=== PATIENT | male | born 1955 | race Caucasian/White ===

== ENCOUNTER 2020-05-26 09:46 | Emergency (ER) | payer SELFPAY ==
[2020-05-26] MEDS ORDERED: metroNIDAZOLE/Normal Saline 500 MG in Premix Bag 1 BAG IV ONE (09:58)
[2020-05-26] MEDS ORDERED: Ondansetron 4 MG/2 ML SDV IVPUSH ONE (09:58)
[2020-05-26] MEDS ORDERED: Pantoprazole 40 MG Vial IVPUSH ONE (09:58)
[2020-05-26] MEDS ORDERED: Lactated Ringers 1,000 ML IV ONE (09:58)
[2020-05-26] MEDS ORDERED: Famotidine 20 MG/2 ML SDV IVPUSH ONE (09:58)
[2020-05-26] MEDS ORDERED: cefTRIAXone 1 GM in Sodium Chloride 0.9% 100 ML IV ONE (09:58)
[2020-05-26] MEDS ORDERED: Sodium Chloride 0.9% 10 ML Syringe FLUSH PRN (09:58)
--- NOTE | 2020-05-26 09:58 | EDM.PDOC ---
ED HPI GENERAL MEDICAL PROBLEM - General Chief Complaint: Abdominal Pain Stated Complaint: Abdominal Pain Time Seen by Provider: 05/26/20 09:46 Source of Information: Reports: Patient. Denies: Old Records (No [facility] records available) History Limitations: Reports: No Limitations - History of Present Illness INITIAL COMMENTS - FREE TEXT/NARRATIVE: the patient drove himself to the emergency room via private automobile for evaluation of right lower quadrant abdominal pain pain and cramping starting at about 6:30 AM this morning. He had chills at that time, however no fever when he measured his temperature. The patient did take Pepto-Bismol with onset of the above symptoms but no recent antipyretic medication, etc. He has not had abdominal complaints in the past. Symptoms were associated with moderate nausea and 5 episodes of dry heaving with the patient not eating breakfast this morning. No recent history of other abdominal pain, heartburn, diarrhea, hematemesis, melena, gross hematochezia, or any food intolerance, including fatty foods, etc. with a good normal bowel movement earlier this morning. He denies any gross hematuria, colic, or other UTI symptoms. The patient denies any chest pain/pressure, heart flutter, dizziness, orthostasis, orthopnea, diaphoresis, paresthesias, recent decreased exercise tolerance, or any other anginal-type symptoms. The patient also denies any recent cough, wheezing, dyspnea, etc.. Onset: Today, Gradual Onset Date: 05/26/20 Onset Time: 06:30 Duration: Constant, Getting Worse Location: Reports: Abdomen. Denies: Head, Face, Neck, Chest, Back, Pelvis, Upper Extremity, Left, Upper Extremity, Right, Lower Extremity, Left, Lower Extremity, Right, Radiates to Quality: Reports: Stabbing Severity: Severe Improves with: Reports: None Worsens with: Reports: None Context: Reports: Other (As above). Denies: Sick Contact, Trauma Associated Symptoms: Reports: Fever/Chills, Loss of Appetite, Nausea/Vomiting. Denies: Confusion, Chest Pain, Cough, Diaphoresis, Headaches, Malaise, Rash, Shortness of Breath, Syncope, Weakness Treatments TAPE TRANSFERRER: Reports: Other Medication(s) (As above) Right Lower Abdomen Pain Score (Numeric/FACES): 10 - Related Data Allergies Allergy/AdvReac Type Severity Reaction Status Date / Time No Known Allergies Allergy Verified 05/26/20 10:10 Home Meds: Home Meds Aspirin 81 mg PO DAILY 05/26/20 [History] Losartan [Cozaar] 100 mg PO DAILY@1200 05/26/20 [History] Non-Formulary Medication [NF Drug] 1 tab PO BEDTIME 05/26/20 [History] Tamsulosin HCl [Flomax] 0.4 mg PO DAILY #7 cap.er.24h 05/26/20 [Rx] atorvaSTATin [Lipitor] 40 mg PO BEDTIME 05/26/20 [History] Past Medical History HEENT History: Reports: Allergic Rhinitis, Impaired Vision, Other (See Below). Denies: Cataract, Glaucoma, Hard of Hearing, Macular Degeneration, Otitis Media, Retinal Detachment Other HEENT History: Seasonal allergies. Patient wears glasses. Cardiovascular History: Reports: Heart Murmur, High Cholesterol, Hypertension, Other (See Below). Denies: Afib, Aneurysm, Arrhythmia, Blood Clots/VTE/DVT, CAD, Cardiomyopathy, Heart Failure, KS, PVD, Syncope Other Cardiovascular History: Benign functional heart murmur as a child, which has since resolved. Respiratory History: Reports: None. Denies: Asthma, Bronchitis, Recurrent, COPD, Intubation, Previous, PE, Pneumonia, Recurrent, Pneumothorax, Sleep Apnea, TB Gastrointestinal History: Reports: Colon Polyp, GERD. Denies: Celiac Disease, Cholelithiasis, Diverticulosis, Gastritis, GI Bleed, Hepatitis, Hiatal Hernia, Inflammatory Bowel Disease, Irritable Bowel Syndrome, Jaundice, Pancreatitis, PUD Genitourinary History: Reports: BPH, STD, Other (See Below). Denies: Acute Renal Failure, Chronic Renal Insuffiency, Diabetic Nephropathy, Renal Calculus, Retention, Urinary, Urinary Incontinence, UTI, Recurrent Other Genitourinary History: Gonorrhea x2 as a teenager while in the [place]- previously treated. Musculoskeletal History: Reports: Arthritis, Back Pain, Chronic, Fracture, Neck Pain, Chronic, Osteoarthritis, Other (See Below). Denies: Amputation, Gout, RA, SLE Other Musculoskeletal History: Phalangeal fractures of digits #3 of the hands bilaterally. Right wrist fracture at age 10. Left wrist fracture age 12. Right mid tibial and fibular fractures in 2010 with current surgery as below. Neurological History: Reports: None. Denies: Cerebral Aneurysms, Concussion, CVA, Headaches, Chronic, Head Trauma, Migraines, MS, Parkinson's, Seizure, TIA Psychiatric History: Reports: None. Denies: Abuse, Victim of, ADD, ADHD, Addiction, Anxiety, Depression, Psych Hospitalization(s), PTSD, Suicide Attempt, Suicidal Ideation Endocrine/Metabolic History: Reports: Diabetes, Type II, Obesity/BMI 30+. Denies: Diabetes, Type I, Diabetes Mellitus, Type 3c, Hypothyroidism, IDDM Hematologic History: Reports: None. Denies: Anemia, Blood Transfusion(s), Iron Deficiency Immunologic History: Reports: None. Denies: AIDS, HIV, SLE Oncologic (Cancer) History: Reports: None. Denies: Basal Cell Carcinoma, Colon, Hodgkin's Lymphoma, Leukemia, Lymphoma, Malignant Melanoma, Non-Hodgkin's Lymphoma, Squamous Cell Carcinoma Dermatologic History: Reports: None. Denies: Eczema, Psoriasis - Infectious Disease History Infectious Disease History: Reports: Chicken Pox, Rheumatic Fever, Shingles (Left-sided facial without zoster ophthalmicus in 2010), Other (See Below). Denies: C-Difficile, Measles, Meningitis, Mononucleosis, MRSA, Mumps, Novel Coronavirus, Rubella, TB, VRE - Past Surgical History Head Surgeries/Procedures: Reports: None HEENT Surgical History: Reports: Oral Surgery, Other (See Below). Denies: Adenoidectomy, Cataract Surgery, Detached Retina, Eye Surgery, Laser Surgery, LASIK, Myringotomy w Tube(s), Naso-Sinus Surgery, Tonsillectomy Other HEENT Surgeries/Procedures: Multiple teeth extractions. Cardiovascular Surgical History: Reports: None. Denies: Varicose Respiratory Surgical History: Reports: None. Denies: Thoracentesis GI Surgical History: Reports: Colonoscopy, Hernia, Abdominal, Polypectomy, Other (See Below). Denies: Appendectomy, Cholecystectomy, EGD, Hernia, Inguinal, Hernia Repair/Other Other GI Surgeries/Procedures: Umbilical hernia repair in about 2016. Colonoscopy in about 2014 with polypectomy of a benign lesion. Male Surgical History: Reports: Circumcision, Other (See Below). Denies: Prostate Biopsy, TURP-Transurethral Resection of Prostate Other Male Surgeries/Procedures: Circumcision at 2016. Vasectomy at about age 30. Neurological Surgical History: Denies: C-Spine, Discectomy, Laminectomy, Lumbar Spine, Sacral Spine, Spinal Fusion, Thoracic Spine, Vertebroplasty Musculoskeletal Surgical History: Reports: Carpal Tunnel, ORIF, Other (See Below). Denies: Arthroscopic Procedure, Ganglion Cyst, Joint Replacement, Shoulder Surgery Other Musculoskeletal Surgeries/Procedures:: Right carpal tunnel release in about 1999. ORIF of midshaft right tibial fibular fracture in 2010. Oncologic Surgical History: Reports: None Dermatological Surgical History: Reports: None Social & Family History - Tobacco Use Tobacco Use Status *Q: Never Tobacco User Tobacco Use Within Last Twelve Months: No Used Tobacco, but Quit: No Smoking Cessation Information Provided To Patient: No Second Hand Smoke Exposure: No Second Hand Smoke Education Provided: No - Caffeine Use Caffeine Use: Reports: Energy Drinks (1 can/week), Soda (3 sodas per week), Tea (3-4 quarts per week). Denies: Coffee - Alcohol Use Alcohol Use History: No Days Per Week of Alcohol Use: 0 Number of Drinks Per Day: 0 Total Drinks Per Week: 0 Alcohol Use in Last Twelve Months: No - Recreational Drug Use Recreational Drug Use: No Drug Use in Last 12 Months: No Recreational Drug Type: Denies: Amphetamines (Speed), Cocaine, Heroin, Inhalants (Glues, Solvents, Aerosols), LSD (Acid), Marijuana/Hashish, Methamphetamine, Morphine, Oxycodone - Living Situation & Occupation Living situation: Reports: (1980, 5 children), with Family () Occupation: Employed (armored car driver.) ED ROS GENERAL - Review of Systems Review Of Systems: Comprehensive ROS is negative, except as noted in HPI. ED EXAM, GI/ABD - Physical Exam Exam: See Below Exam Limited By: No Limitations General Appearance: Alert, WD/WN, No Apparent Distress Eyes: Bilateral: Normal Appearance (No nystagmus or vertigo. Patient is wearing glasses.), EOMI (PERRLA) Ears: Normal External Exam, Normal Canal, Hearing Grossly Normal, Normal TMs Nose: Normal Inspection, Normal Mucosa, No Blood Throat/Mouth: Normal Inspection, Normal Lips, Normal Teeth (Occasional missing teeth without acute infection), Normal Gums, Normal Oropharynx, Normal Voice, No Airway Compromise. No: Dysphagia, Perioral Cyanosis Head: Atraumatic, Normocephalic. No: Facial Swelling, Facial Tenderness, Sinus Tenderness Neck: Normal Inspection, Supple, Non-Tender, Full Range of Motion. No: Carotid Bruit, Lymphadenopathy (L), Lymphadenopathy (R), Thyromegaly Respiratory/Chest: No Respiratory Distress, Lungs Clear, Normal Breath Sounds, No Accessory Muscle Use, Chest Non-Tender. No: Pleural Rub, Retractions Cardiovascular: Normal Peripheral Pulses, Regular Rate, Rhythm, No Edema, No Gallop, No JVD, No Murmur, No Rub. No: Gallop/S3, Gallop/S4, Friction Rub GI/Abdominal Exam: Normal Bowel Sounds, No Organomegaly, No Distention, No Abnormal Bruit, No Mass, Pelvis Stable, Rebound (Borderline), Tender (Moderate right lower quadrant palpation pain). No: Guarding, Hernia (Male) Exam: Deferred Rectal (Males) Exam: Deferred Back Exam: Normal Inspection, Full Range of Motion. No: CVA Tenderness (L), CVA Tenderness (R), Muscle Spasm Extremities: Normal Inspection, Normal Range of Motion, Non-Tender, No Pedal Edema, Normal Capillary Refill. No: Yusuf's Sign Neurological: Alert, Oriented, CN II-XII Intact, Normal Cognition, Normal Gait, Normal Reflexes (Negative Babinski's), No Motor/Sensory Deficits Psychiatric: Normal Affect, Normal Mood. No: Anxious, Depressed Mood Skin Exam: Warm, Dry, Intact, Normal Color, No Rash, Tattoo(s). No: Diaphoretic, Wound/Incision Lymphatic: No Adenopathy Course - Vital Signs Last Recorded V/S: Last Vital Signs Temp 36.1 C 05/26/20 09:49 Pulse 99 05/26/20 12:00 Resp 19 05/26/20 12:00 BP 150/83 H 05/26/20 12:00 Pulse Ox 100 05/26/20 12:00 - Orders/Labs/Meds Orders: Active Orders 24 hr Category Date Time Status Peripheral IV Care [RC] . DIRECTED Care 05/26/20 09:59 Active Nothing Per Oral Diet [DIET] Diet 05/26/20 Breakfast Active Abdomen Pelvis w Cont [CT] Stat Exams 05/26/20 09:58 Taken CULTURE URINE [RM] Stat Lab 05/26/20 09:58 Ordered REFLEX LACTIC ACID YES OR NO [CHEM] Routine Lab 05/26/20 14:24 Received Lactated Ringers [Ringers, Lactated] 1,000 ml Med 05/26/20 12:00 Active IV ASDIRECTED Sodium Chloride 0.9% [Saline Flush] Med 05/26/20 09:58 Active 10 ml FLUSH ASDIRECTED PRN Obtain Past Medical Record [OM.PC] Urgent Oth 05/26/20 09:58 Active Peripheral IV Insertion Adult [OM.PC] Stat Oth 05/26/20 09:58 Ordered Resuscitation Status Stat Resus Stat 05/26/20 09:58 Ordered Medication Orders Lactated Ringer's (Ringers, Lactated) 1,000 mls @ 150 mls/hr IV ASDIRECTED EMILEE Last Admin: 05/26/20 13:20 Dose: 150 mls/hr Documented by: LOUISA Sodium Chloride (Saline Flush) 10 ml FLUSH ASDIRECTED PRN PRN Reason: Keep Vein Open Last Admin: 05/26/20 10:17 Dose: 10 ml Documented by: LOUISA Labs: Laboratory Tests 05/26/20 05/26/20 05/26/20 Range/Units 10:05 10:05 10:05 WBC 10.8 H (4.0-10.2) K/uL RBC 4.61 (4.33-5.41) M/uL Hgb 13.4 (13.1-16.8) g/dL Hct 41.1 (39.0-49.0) % MCV 89.2 (84.0-98.0) fL MCH 29.1 (28.2-33.3) pg MCHC 32.6 (31.7-36.0) g/dL RDW 14.0 (11.2-14.1) % Plt Count 251 (150-350) K/uL Neut % (Auto) 72.4 (45.0-80.0) % Lymph % (Auto) 18.8 (10.0-50.0) % Trigg % (Auto) 7.7 (2.0-14.0) % Eos % (Auto) 0.8 (0.0-5.0) % Baso % (Auto) 0.3 (0.0-2.0) % Neut # (Auto) 7.79 H (1.40-7.00) K/uL Lymph # (Auto) 2.02 (0.50-3.50) K/uL Trigg # (Auto) 0.83 (0.00-1.00) K/uL Eos # (Auto) 0.09 (0.00-0.50) K/uL Baso # (Auto) 0.03 (0.00-0.20) K/uL PT 9.2 L (9.5-12.0) SEC INR 0.9 APTT 23.5 L (24.5-32.8) SEC Sodium (136-145) mmol/L Potassium (3.5-5.1) mmol/L Chloride (98-107) mmol/L Carbon Dioxide (21.0-32.0) mmol/L BUN (7-18) mg/dL Creatinine (0.51-1.17) mg/dL Est Cr Clr Drug Dosing Estimated GFR (MDRD) mL/min Glucose (74-106) mg/dL Lactic Acid (0.4-2.0) mmol/L Uric Acid (2.6-7.2) mg/dL Calcium (8.5-10.1) mg/dL Magnesium (1.8-2.4) mg/dL Total Bilirubin (0.2-1.0) mg/dL AST (15-37) U/L ALT (12-78) U/L Alkaline Phosphatase (46-116) IU/L Total Protein (6.4-8.2) g/dL Albumin (3.4-5.0) g/dL Amylase 40 (25-115) U/L Lipase (73-393) U/L Specimen Type Urine Color Urine Appearance Urine pH (5.0-9.0) Ur Specific [place] (1.005-1.030) Urine Protein (NEGATIVE) mg/dL Urine Glucose (UA) (NEGATIVE) mg/dL Urine Ketones (NEGATIVE) mg/dL Urine Occult Blood (NEGATIVE) Urine Nitrite (NEGATIVE) Urine Bilirubin (NEGATIVE) Urine Urobilinogen (0.2-1.0) E.U./dL Ur Leukocyte Esterase (NEGATIVE) Urine RBC /HPF Urine WBC /HPF Urine Bacteria (NONE TO FEW) /HPF 05/26/20 05/26/20 05/26/20 Range/Units 10:05 10:05 11:50 WBC (4.0-10.2) K/uL RBC (4.33-5.41) M/uL Hgb (13.1-16.8) g/dL Hct (39.0-49.0) % MCV (84.0-98.0) fL MCH (28.2-33.3) pg MCHC (31.7-36.0) g/dL RDW (11.2-14.1) % Plt Count (150-350) K/uL Neut % (Auto) (45.0-80.0) % Lymph % (Auto) (10.0-50.0) % Trigg % (Auto) (2.0-14.0) % Eos % (Auto) (0.0-5.0) % Baso % (Auto) (0.0-2.0) % Neut # (Auto) (1.40-7.00) K/uL Lymph # (Auto) (0.50-3.50) K/uL Trigg # (Auto) (0.00-1.00) K/uL Eos # (Auto) (0.00-0.50) K/uL Baso # (Auto) (0.00-0.20) K/uL PT (9.5-12.0) SEC INR APTT (24.5-32.8) SEC Sodium 136 (136-145) mmol/L Potassium 4.6 (3.5-5.1) mmol/L Chloride 101 (98-107) mmol/L Carbon Dioxide 26.4 (21.0-32.0) mmol/L BUN 21 H (7-18) mg/dL Creatinine 0.87 (0.51-1.17) mg/dL Est Cr Clr Drug Dosing TNP Estimated GFR (MDRD) > 60 mL/min Glucose 203 H (74-106) mg/dL Lactic Acid 2.9 H (0.4-2.0) mmol/L Uric Acid 5.5 (2.6-7.2) mg/dL Calcium 9.0 (8.5-10.1) mg/dL Magnesium 1.6 L (1.8-2.4) mg/dL Total Bilirubin 0.4 (0.2-1.0) mg/dL AST 16 (15-37) U/L ALT 40 (12-78) U/L Alkaline Phosphatase 101 (46-116) IU/L Total Protein 7.6 (6.4-8.2) g/dL Albumin 3.8 (3.4-5.0) g/dL Amylase (25-115) U/L Lipase 61 L (73-393) U/L Specimen Type Urinvoid Urine Color Yellow Urine Appearance Clear Urine pH 6.5 (5.0-9.0) Ur Specific [place] 1.015 (1.005-1.030) Urine Protein Negative (NEGATIVE) mg/dL Urine Glucose (UA) Negative (NEGATIVE) mg/dL Urine Ketones Negative (NEGATIVE) mg/dL Urine Occult Blood Large H (NEGATIVE) Urine Nitrite Negative (NEGATIVE) Urine Bilirubin Negative (NEGATIVE) Urine Urobilinogen 0.2 (0.2-1.0) E.U./dL Ur Leukocyte Esterase Negative (NEGATIVE) Urine RBC 10-20 H /HPF Urine WBC Not seen /HPF Urine Bacteria Not seen (NONE TO FEW) /HPF 05/26/20 Range/Units 14:00 WBC (4.0-10.2) K/uL RBC (4.33-5.41) M/uL Hgb (13.1-16.8) g/dL Hct (39.0-49.0) % MCV (84.0-98.0) fL MCH (28.2-33.3) pg MCHC (31.7-36.0) g/dL RDW (11.2-14.1) % Plt Count (150-350) K/uL Neut % (Auto) (45.0-80.0) % Lymph % (Auto) (10.0-50.0) % Trigg % (Auto) (2.0-14.0) % Eos % (Auto) (0.0-5.0) % Baso % (Auto) (0.0-2.0) % Neut # (Auto) (1.40-7.00) K/uL Lymph # (Auto) (0.50-3.50) K/uL Trigg # (Auto) (0.00-1.00) K/uL Eos # (Auto) (0.00-0.50) K/uL Baso # (Auto) (0.00-0.20) K/uL PT (9.5-12.0) SEC INR APTT (24.5-32.8) SEC Sodium (136-145) mmol/L Potassium (3.5-5.1) mmol/L Chloride (98-107) mmol/L Carbon Dioxide (21.0-32.0) mmol/L BUN (7-18) mg/dL Creatinine (0.51-1.17) mg/dL Est Cr Clr Drug Dosing Estimated GFR (MDRD) mL/min Glucose (74-106) mg/dL Lactic Acid 2.6 H (0.4-2.0) mmol/L Uric Acid (2.6-7.2) mg/dL Calcium (8.5-10.1) mg/dL Magnesium (1.8-2.4) mg/dL Total Bilirubin (0.2-1.0) mg/dL AST (15-37) U/L ALT (12-78) U/L Alkaline Phosphatase (46-116) IU/L Total Protein (6.4-8.2) g/dL Albumin (3.4-5.0) g/dL Amylase (25-115) U/L Lipase (73-393) U/L Specimen Type Urine Color Urine Appearance Urine pH (5.0-9.0) Ur Specific [place] (1.005-1.030) Urine Protein (NEGATIVE) mg/dL Urine Glucose (UA) (NEGATIVE) mg/dL Urine Ketones (NEGATIVE) mg/dL Urine Occult Blood (NEGATIVE) Urine Nitrite (NEGATIVE) Urine Bilirubin (NEGATIVE) Urine Urobilinogen (0.2-1.0) E.U./dL Ur Leukocyte Esterase (NEGATIVE) Urine RBC /HPF Urine WBC /HPF Urine Bacteria (NONE TO FEW) /HPF Meds: Medications Generic Name Dose Route Start Last Admin Trade Name Freq PRN Reason Stop Dose Admin Lactated Ringer's 1,000 mls @ 150 mls/hr 05/26/20 12:00 05/26/20 13:20 Ringers, Lactated IV 150 mls/hr ASDIRECTED EMILEE Administration Sodium Chloride 10 ml 05/26/20 09:58 05/26/20 10:17 Saline Flush FLUSH 10 ml ASDIRECTED PRN Administration Keep Vein Open Discontinued Medications Generic Name Dose Route Start Last Admin Trade Name Freq PRN Reason Stop Dose Admin Famotidine 40 mg 05/26/20 09:58 05/26/20 10:21 Pepcid IVPUSH 05/26/20 09:59 40 mg ONETIME ONE Administration Hydromorphone HCl 1 mg 05/26/20 10:01 05/26/20 10:05 Dilaudid IVPUSH 05/26/20 10:02 1 mg ONETIME ONE Administration Lactated Ringer's 1,000 mls @ 999 mls/hr 05/26/20 09:58 05/26/20 12:15 Ringers, Lactated IV 05/26/20 10:58 999 mls/hr .BOLUS ONE Administration Ceftriaxone Sodium 1 gm/ 100 mls @ 200 mls/hr 05/26/20 09:58 05/26/20 10:21 Sodium Chloride IV 05/26/20 10:27 200 mls/hr ONETIME ONE Administration Metronidazole 500 mg/ Premix 100 mls @ 100 mls/hr 05/26/20 09:58 05/26/20 11:12 IV 05/26/20 10:57 100 mls/hr ONETIME ONE Administration Iopamidol 100 ml 05/26/20 10:15 05/26/20 11:08 Isovue-300 (61%) IVPUSH 05/26/20 10:16 100 ml ONETIME STA Administration Ketorolac Tromethamine 30 mg 05/26/20 11:58 05/26/20 12:14 Toradol IVPUSH 05/26/20 11:59 30 mg ONETIME ONE Administration Ondansetron HCl 4 mg 05/26/20 09:58 05/26/20 10:07 Zofran IVPUSH 05/26/20 09:59 4 mg ONETIME ONE Administration Pantoprazole Sodium 40 mg 05/26/20 09:58 05/26/20 10:13 Protonix Iv IVPUSH 05/26/20 09:59 40 mg ONETIME ONE Administration Tamsulosin HCl 0.8 mg 05/26/20 11:59 05/26/20 12:14 Flomax PO 05/26/20 12:00 0.8 mg ONETIME ONE Administration Departure - Departure Time of Disposition: 14:45 Disposition: Home, Self-Care 01 Condition: Good, Fair Clinical Impression: Abdominal pain, Peptic reflux disease, Hypertension, Diabetes mellitus, Hyperlipidemia, Elevated lactic acid level, Hypomagnesemia, Urolithiasis - Discharge Information *PRESCRIPTION DRUG MONITORING PROGRAM REVIEWED*: Not Applicable *COPY OF PRESCRIPTION DRUG MONITORING REPORT IN PATIENT GENET: Not Applicable Prescriptions: Tamsulosin HCl [Flomax] 0.4 mg PO DAILY #7 cap.er.24h Instructions: Kidney Stones, Imhu-bi-Evyr Referrals: PCP,Not In Area [Ordering Only Provider] - Forms: ED Department Discharge, ED Return to Work/School Form Additional Instructions: 1. Followup with your regular provider or in this facility as an outpatient tomorrow for reevaluation and recommended repeat CBC and lactic acid level. Otherwise follow-up with your regular provider in 7 days as directed for reevaluation and recommended repeat CBC, basic metabolic panel, magnesium level, and consideration of scheduling of renal ultrasound. Bring these discharge instructions with you to that visit. 2. Tylenol 650 mg by mouth every 4 hours and/or OTC ibuprofen 2-3 tabs by mouth every 6 hours with food as directed./needed. You may stagger these medications for 48-72 hours only, which essentially means that you are receiving a pain medication about every 2 hours. Next dose of ibuprofen in 6 hours secondary to medications given in the emergency room 3. Strain all urine and bring stone to your regular provider or this facility as directed for further stone analysis. Encourage oral fluids as discussed until you have passed your stone. 4. Work excuse- See Form 5. Immediately after this visit verify that your cellular telephone's voicemail has been activated and is empty. Also verify that your home telephone's answering machine is operating properly and has space to receive messages. Note that it is sometimes necessary for us to be able to contact you at a later date to discuss your medical care. 6. Please remember that we are ALWAYS here for you and want to answer any questions you may have. Feel free to call the hospital any time and we call you back MAGGIE. 7. Bascom diet including encouragement of oral fluids such as sports drinks, etc. for 24-48 hours as directed. Advance to 1800-calorie ADA, heart healthy diet as tolerated thereafter. 8. Start your Flomax tomorrow morning with discontinuation of this medication after your stone has passed 9. Hold your Metformin for 48 hours secondary to IV contrast given today for your CT scan and then resume as before. Sepsis Event Note (ED) - Evaluation Sepsis Screening Result: No Definite Risk - Focused Exam Vital Signs: Vital Signs Temp Pulse Resp BP Pulse Ox 05/26/20 12:00 99 19 150/83 H 100 05/26/20 11:23 100 20 161/79 H 97 05/26/20 10:56 80 16 145/84 H 94 L 05/26/20 09:49 36.1 C 84 16 178/91 H 97 - Problem List & Annotations (1) Urolithiasis SNOMED Code(s): 25921848 Code(s): N20.9 - URINARY CALCULUS, UNSPECIFIED Status: Acute Priority: High Current Visit: Yes Onset Date: 05/26/20 Annotation/Comment:: Atypical presentation with no previous history of urolithiasis. Note mild to moderate hydronephrosis with close follow-up with regular provider, including possible repeat renal ultrasound, recommended as per discharge instructions. Patient does agree to collect the stone for analysis with the stone to be brought back to his regular provider, since he lives in [place]. No indication for further antibiotics at this time. Note aggressive hydration with high-dose Flomax and IV Toradol given. Qualifiers: Urinary calculus location: ureter Qualified Code(s): N20.1 - Calculus of ureter (2) Abdominal pain SNOMED Code(s): 99152140 Code(s): R10.9 - UNSPECIFIED ABDOMINAL PAIN Status: Acute Priority: High Current Visit: Yes Onset Date: 05/26/20 Annotation/Comment:: CT scan of the abdomen results as above. Note additional suspected appendicitis with borderline peritonitis based on my clinical exam upon arrival with immediate initiation of IV Rocephin and IV Flagyl. High-dose IV Pepcid and IV Protonix also given as GI prophylaxis. IV Zofran for mild nausea with overall good results. Qualifiers: Abdominal location: right lower quadrant Qualified Code(s): R10.31 - Right lower quadrant pain (3) Diabetes mellitus SNOMED Code(s): 93256668 Code(s): E11.9 - TYPE 2 DIABETES MELLITUS WITHOUT COMPLICATIONS Status: Chronic Priority: Medium Current Visit: Yes Annotation/Comment:: Home Accu-Cheks have been stable range between 90s and 100s with 3 times daily Accu- Cheks at this time. Qualifiers: Diabetes mellitus type: type 2 Diabetes mellitus skilled nursing insulin use: without skilled nursing use Diabetes mellitus complication status: without c omplication Qualified Code(s): E11.9 - Type 2 diabetes mellitus without complications (4) Elevated lactic acid level SNOMED Code(s): 0617910 Code(s): R79.89 - OTHER SPECIFIED ABNORMAL FINDINGS OF BLOOD CHEMISTRY Status: Acute Priority: High Current Visit: Yes Onset Date: 05/26/20 Annotation/Comment:: No clinical evidence of sepsis. IV antibiotic therapy initiated as above. Patient also bolused with 1 L of lactated Ringer's with subsequent continuation of LR at 150 cc/h. Repeat lactic acid level is still elevated despite aggressive IV hydration. The patient does not wish to be admitted or stay longer at this time. Extensive precautions were given with the patient strongly advised to follow-up with his regular provider tomorrow as per discharge instructions. (5) Hyperlipidemia SNOMED Code(s): 35023563 Code(s): E78.5 - HYPERLIPIDEMIA, UNSPECIFIED Status: Chronic Priority: Medium Current Visit: Yes Annotation/Comment:: Currently under therapy. Note current obesity. Weight loss in moderation is advisable. Qualifiers: Hyperlipidemia type: unspecified Qualified Code(s): E78.5 - Hyperlipidemia, unspecified (6) Hypertension SNOMED Code(s): 50759773 Code(s): I10 - ESSENTIAL (PRIMARY) HYPERTENSION Status: Chronic Priority: Medium Current Visit: Yes Annotation/Comment:: Stable by patient history although somewhat elevated in the emergency room likely secondary to his discomfort. Continue to observe closely by his regular provider. Qualifiers: Hypertension type: essential hypertension Qualified Code(s): I10 - Essential (primary) hypertension (7) Hypomagnesemia SNOMED Code(s): 820777908 Code(s): E83.42 - HYPOMAGNESEMIA Status: Acute Priority: Medium Current Visit: Yes Onset Date: 05/26/20 Annotation/Comment:: Consider magnesium supplementation with oral magnesium oxide with close follow-up by regular provider. (8) Peptic reflux disease SNOMED Code(s): 166047038 Code(s): K21.9 - GASTRO-ESOPHAGEAL REFLUX DISEASE WITHOUT ESOPHAGITIS Status: Chronic Priority: Medium Current Visit: Yes Annotation/Comment:: Previously stable by history. Note IV Protonix and IV Pepcid given as above. - Problem List Review Problem List Initiated/Reviewed/Updated: Yes - My Orders Last 24 Hours: My Active Orders 05/26/20 Breakfast Nothing Per Oral Diet [DIET] 05/26/20 09:58 Abdomen Pelvis w Cont [CT] Stat CULTURE URINE [RM] Stat Sodium Chloride 0.9% [Saline Flush] 10 ml FLUSH ASDIRECTED PRN Obtain Past Medical Record [OM.PC] Urgent Peripheral IV Insertion Adult [OM.PC] Stat Resuscitation Status Stat 05/26/20 09:59 Peripheral IV Care [RC] . DIRECTED 05/26/20 12:00 Lactated Ringers [Ringers, Lactated] 1,000 ml IV ASDIRECTED 05/26/20 14:24 REFLEX LACTIC ACID YES OR NO [CHEM] Routine - Assessment/Plan Last 24 Hours: My Active Orders 05/26/20 Breakfast Nothing Per Oral Diet [DIET] 05/26/20 09:58 Abdomen Pelvis w Cont [CT] Stat CULTURE URINE [RM] Stat Sodium Chloride 0.9% [Saline Flush] 10 ml FLUSH ASDIRECTED PRN Obtain Past Medical Record [OM.PC] Urgent Peripheral IV Insertion Adult [OM.PC] Stat Resuscitation Status Stat 05/26/20 09:59 Peripheral IV Care [RC] . DIRECTED 05/26/20 12:00 Lactated Ringers [Ringers, Lactated] 1,000 ml IV ASDIRECTED 05/26/20 14:24 REFLEX LACTIC ACID YES OR NO [CHEM] Routine Assessment:: As above Plan: As above. Extensive precautions were given to the patient, who is in agreement with the treatment plan.
[2020-05-26] MEDS ORDERED: HYDROmorphone 1 MG/ML Syringe IVPUSH ONE (10:01)
[2020-05-26] MEDS ORDERED: Iopamidol 612 MG/ML 100 ML Bottle IVPUSH STA (10:15)
[2020-05-26 10:25] LABS: PTT,PARTIAL THROMBOPLSTIN TIME 23.5 SEC (24.5-32.8)
[2020-05-26 10:26] LABS: CHLORIDE,CL 101 mmol/L (98-107); SODIUM,NA 136 mmol/L (136-145)
[2020-05-26] MEDS ORDERED: Ketorolac 30 MG/ML SDV IVPUSH ONE (11:58)
[2020-05-26] MEDS ORDERED: Tamsulosin 0.4 MG Cap.ER PO ONE (11:59)
[2020-05-26] MEDS ORDERED: Lactated Ringers 1,000 ML IV SCH (12:00)
== END 2020-05-26 14:45 | disposition home or self-care (01) ==
LOC: LL.ED 09:46
DX: K21.9 Gastro-esophageal reflux disease without esophagitis (principal); N13.2 Hydronephrosis with renal and ureteral calculous obstruction; I10 Essential (primary) hypertension; E78.5 Hyperlipidemia, unspecified; E83.42 Hypomagnesemia; R74.02 Elevation of levels of lactic acid dehydrogenase [LDH]; N40.0 Benign prostatic hyperplasia without lower urinary tract symptoms; E11.9 Type 2 diabetes mellitus without complications; E66.9 Obesity, unspecified; Z90.49 Acquired absence of other specified parts of digestive tract; Z68.35 Body mass index [BMI] 35.0-35.9, adult; Z79.82 Long term (current) use of aspirin; Z79.899 Other long term (current) drug therapy
CPT/HCPCS: 36415; 74177; 80053; 81001; 82150; 83605; 83690; 83735; 84550; 85025; 85610; 85730; 87086; 96361; 96365; 96367; 96375; 99284-25; A9270-GY; C9113; J0696; J1170; J1885; J2405; J3490; J7120; Q9967